=== PATIENT | male | born 1945 | race Asian ===

== ENCOUNTER 2019-04-20 16:42 | Inpatient (IN) | payer OTHER ==
[~2019-04-20] VITALS: Ht 165.1 cm; Wt 57.8 kg
[2019-04-20] MEDS ORDERED: SODIUM CHLORIDE 0.9% 1,000 ML IV ONE (17:24)
[2019-04-20] MEDS ORDERED: SODIUM CHLORIDE FLUSH 10ML SYR IVF ONE (17:30)
[2019-04-20] MEDS ORDERED: ONDANSETRON 2MG/ML, 2ML IVPush ONE (17:30)
[2019-04-20] MEDS ORDERED: MORPHINE SULFATE 4 MG/ML, 1ML IVPush PRN (17:30)
[2019-04-20] MEDS ORDERED: MORPHINE SULFATE 4 MG/ML, 1ML ONE (17:38)
[2019-04-20] MEDS ORDERED: ONDANSETRON 2MG/ML, 2ML ONE ×3 (17:38→20:15)
[2019-04-20 17:57] LABS: BASOPHILS # (AUTO) 0.04 x10^3/uL (0-0.1); BASOPHILS % (AUTO) 0 % (0-1); EOSINOPHILS # (AUTO) 0.02 x10^3/uL (0-0.4); EOSINOPHILS % (AUTO) 0 % (1-7); LYMPHOCYTES # (AUTO) 0.73 x10^3/uL (1-3.4); LYMPHOCYTES % (AUTO) 7 % (22-44); MD NO; MEAN CORPUSCULAR HEMOGLOBIN 30.3 pg (27.5-34.5); MEAN CORPUSCULAR HGB CONC 33.2 g/dL (33.2-36.2); MEAN CORPUSCULAR VOLUME 91.3 fL (81-97); MEAN PLATELET VOLUME 7.8 fL (7.4-10.4); MONOCYTES # (AUTO) 0.35 x10^3/uL (0.2-0.8); MONOCYTES % (AUTO) 4 % (2-9); NEUTROPHILS # (AUTO) 8.68 x10^3/uL (1.8-6.8); NEUTROPHILS % (AUTO) 88 % (42-75); PLATELET COUNT 250 x10^3/uL (130-400); RED BLOOD COUNT 4.74 x10^6/uL (4.38-5.82); RED CELL DISTRIBUTION WIDTH 14.6 % (9.4-14.8)
[2019-04-20 17:59] LABS: INTERNATIONAL NORMALIZED RATIO 0.97 (0.93-1.1); PROTHROMBIN TIME 10.3 Seconds (9.6-11.5)
[2019-04-20 18:00] LABS: ALANINE AMINOTRANSFERASE 21 U/L (12-78); ANION GAP 9 mmol/L (5-15); CALCIUM 8.7 mg/dL (8.5-10.1); CHLORIDE 106 mmol/L (98-107); CREATININE 1.12 mg/dL (0.7-1.3)
[2019-04-20 18:03] LABS: ALKALINE PHOSPHATASE 85 U/L (45-117); BILIRUBIN,TOTAL 0.7 mg/dL (0.2-1.0)
[2019-04-20 19:17] LABS: MICROSCOPIC NOT IND
[2019-04-20 19:21] VITALS: BP 157/82
[2019-04-20 19:22] LABS: CULTURE INDICATED? NO
[2019-04-20] MEDS ORDERED: CEFOTETAN PMX 1GM/50ML 50 ML ONE (19:24)
[2019-04-20] MEDS ORDERED: CEFOTETAN PMX 1GM/50ML 50 ML IV ONE (19:30)
--- NOTE | 2019-04-20 19:30 | NUR ---
report to or. abx admin started. belongings bagged and labeled. taken with family. or tech in room now.
[2019-04-20] MEDS ORDERED: BUPIVACAINE/PF-EPI 0.25% 1:200K ONE (19:32)
[2019-04-20] MEDS ORDERED: OMNIPAQUE 350 MG/ML, 100ML BOTTLE ONE (19:41)
[2019-04-20] MEDS ORDERED: PHENYLEPHRINE 10 MG/ML ONE (19:55)
[2019-04-20] MEDS ORDERED: SUCCINYLCHOLINE 20 MG/ML, 10ML ONE (19:55)
[2019-04-20] MEDS ORDERED: MIDAZOLAM 1 MG/ML, 2ML ONE (19:56)
[2019-04-20] MEDS ORDERED: FENTANYL PF 250 MCG/5ML ONE (19:56)
[2019-04-20] MEDS ORDERED: PROPOFOL 10 MG/ML, 20ML ONE (20:15)
[2019-04-20] MEDS ORDERED: ROCURONIUM 10MG/ML,5ML ONE (20:15)
[2019-04-20] MEDS ORDERED: SUGAMMADEX 200 MG/2 ML IVPush ONE (20:15)
[2019-04-20] MEDS ORDERED: DEXAMETHASONE 4 MG/ML, 1ML ONE ×2 (20:15)
[2019-04-20] MEDS ORDERED: BUPIVACAINE/PF-EPI 0.25% 1:200K INFIL ONE (20:19)
[2019-04-20] MEDS ORDERED: ALBUTEROL SULFATE 2.5 MG/3 ML NPPB PRN (20:30)
[2019-04-20] MEDS ORDERED: ONDANSETRON ODT 8 MG PO PRN (20:30)
[2019-04-20] MEDS ORDERED: PROMETHAZINE 12.5 MG SUPP PR PRN (20:30)
[2019-04-20] MEDS ORDERED: MEPERIDINE/PF 25MG/ML,1ML IVPush PRN (20:30)
[2019-04-20] MEDS ORDERED: LABETALOL 5MG/ML, 20ML IV PRN (20:30)
[2019-04-20] MEDS ORDERED: EPHEDRINE 50 MG/ML, 1ML IVPush PRN (20:30)
[2019-04-20] MEDS ORDERED: ONDANSETRON 2MG/ML, 2ML IV PRN (20:30)
[2019-04-20] MEDS ORDERED: HALOPERIDOL 5 MG/ML IV PRN (20:30)
[2019-04-20] MEDS ORDERED: OXYcodone 5 MG/5 ML ORAL.SOL UDC PO PRN (20:30)
[2019-04-20] MEDS ORDERED: DIAZEPAM 5 MG/ML, 2ML IVPush PRN (20:30)
[2019-04-20] MEDS ORDERED: FENTANYL PF 100 MCG/2ML IV PRN (20:30)
[2019-04-20] MEDS ORDERED: MIDAZOLAM 1 MG/ML, 2ML IV PRN (20:30)
[2019-04-20] MEDS ORDERED: hydrALAzine 20 MG/ML, 1ML IV PRN (20:30)
[2019-04-20] MEDS ORDERED: ACETAMINOPHEN 325 MG TABLET PO PRN (20:30)
[2019-04-20] MEDS ORDERED: PROMETHAZINE 25 MG/ML, 1ML IV PRN (20:30)
[2019-04-20] MEDS ORDERED: HYDROmorphone 2 MG/ML, 1ML IVPush PRN (20:30)
[2019-04-20] MEDS ORDERED: ACETAMINOPHEN 650 MG/20.3 ML UDC ONE (21:00)
[2019-04-20] MEDS ORDERED: HYDR-3240 PO (21:33)
== END 2019-04-20 23:59 | disposition home or self-care (01) | DRG 342 ==
LOC: ED 19:32 → EDIP 19:42 → 4NE 21:25
PROVIDERS: ADMIT Emergency Medicine; ATTEND Emergency Medicine
PROC: 0DTJ4ZZ Resection of Appendix, Percutaneous Endoscopic Approach (ICD-10-PCS; principal; 2019-04-20 20:00)
DX: K35.30 Acute appendicitis with localized peritonitis, without perforation or gangrene (principal); I69.954 Hemiplegia and hemiparesis following unspecified cerebrovascular disease affecting left non-dominant side; I10 Essential (primary) hypertension; Z87.891 Personal history of nicotine dependence; Z79.899 Other long term (current) drug therapy
CPT/HCPCS: 36415; 74177; 80053; 81003; 85025; 85610; 85730; 88304; 96361; 96374; 96375; G0378; J1100; J2250; J2405; J2704; J3010; Q9967; J0330; J2270; J2370; J3490; J7030